=== PATIENT | female | born 1990 | race Caucasian/White ===

== ENCOUNTER 2019-07-28 14:57 | Outpatient (RCR) | payer OTHER, SELFPAY ==
--- NOTE | 2019-08-04 10:39 | PTOPEVAL ---
Thank you for referring this patient to [facility]. Please review, sign, date and return this plan of care WILLIE. I agree with and certify that the following plan of care is medically necessary. Referring Physician Date Admitting Provider: Attending Provider: Mukesh Magana, Referring Provider: *PT Outpatient Evaluation Start: 07/28/19 15:09 Freq: Status: Active Protocol: Document 07/28/19 15:15 JTF (Rec: 07/28/19 16:07 [email or web address] [id number]) Therapy Assessment Status Assessment Status Assessment Status Evaluation Outpatient Past Medical History Past Medical History Past Medical History Status Patient Denies Significant Past Medical History Evaluation Information Problem Diagnosis low back pain Onset 07/17/19 Additional Evaluation Detail oswestry = 40% Subjective Information patient reports she injured Query Text:As Reported By Patient/ her back at work about 2 weeks Family ago. 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 she reports she was having difficulty getting the wheelchair through the snow and slush that caused her to have back pain. she reports pain in the back since this incident. she reports sitting causes mid to low back pain, standing causes low back pain. Diagnostic Tests X-Rays For This Problem Yes: negative per patient report Prior Level of Function Comments Additional Prior Level of Function patient reports prior to 07/17, she was without pain or symptoms in the back. increased pain noted with sleeping on R side now. she reports she is on light duty at work currently. Pain Assessment Timing of Pain Assessment Timing of Pain Assessment Assessment Pain Scale Pain Scale Used Numeric (1 - 10) Self Report Pain Assessment Lower Back Reported Pain Level 4 Pain Description Aching,Burning,Soreness Radicular Pain Location burning in back only. no LE radicular symptoms. Other Pain Description sharp at times, wears a brace Current Pain Intensity 4 Lowest Pain Intensity 0 Greatest Pain Intensity 6
--- NOTE | 2019-08-24 14:24 | PCPTNOTE ---
patient called and cancelled appt due to weather. SANTIAGO
--- NOTE | 2019-09-12 11:44 | PCPTNOTE ---
09/12/19-PT CANCELLED APPOINTMENT ON 09/11/19-.
--- NOTE | 2019-09-22 10:11 | PCPTNOTE ---
09/22/19-pt did not show for appointment on 09/21/19-HM
--- NOTE | 2019-10-31 17:27 | PCPTNOTE ---
10/31/19- pt last seen on 09/19. pt did not show for apt on 09/21, and has not returned calls to return to therapy. pt will be discharged on this date per evaluating therapist.-MEHUL
== END 2019-09-19 23:59 | disposition home or self-care (01) ==
LOC: CHSPT 14:57
PROVIDERS: Visit Provider Internal Medicine
DX: M54.5 Low back pain (principal)
CPT/HCPCS: 97014; 97110; 97161; 97530; G0283

== ENCOUNTER 2020-05-15 13:04 | Emergency (ER) | payer OTHER, SELFPAY ==
[2020-05-15 13:08] VITALS: BP 136/96; PULSE 77; RESP 16; TEMP 36.3; O2SAT 100
[2020-05-15 13:23] LABS: Basophils Absolute Auto 0.1 K/mm3 (0.0-0.1); Basophils Percent Auto 0.7 % (0.2-1.2); Eosinophils Absolute Auto 0.1 K/mm3 (0-0.3); Hematocrit 44.1 % (37.0-47.0); Hemoglobin 14.2 g/dL (12.0-15.0); Immature Granulocyte Absolute 0.01 K/mm3 (0.00-0.031); Immature Granulocyte Percent A 0.1 % (0-0.5); Lymphocytes Absolute Auto 2.19 K/mm3 (0.9-3.2); Mean Corpuscular HGB Conc 32.2 g/dl (32-36); Mean Corpuscular Hemoglobin 25.9 pg (26-34); Mean Corpuscular Volume 80.5 fl (80-100); Mean Platelet Volume 9.2 fl (7.4-10.4); Monocytes Absolute Auto 0.6 K/mm3 (0.1-0.6); Monocytes Percent Auto 8.5 % (2.6-8.5); Neutrophils Percent Auto 57.7 % (45.5-73.1); Platelet Count Result 401 k/mm3 (150-375); Red Blood Count 5.48 M/mm3 (4.2-5.4); Red Cell Distribution Width 13.9 % (11.5-14.5); White Blood Count 6.9 K/mm3 (4.5-10.0)
[2020-05-15 13:34] LABS: Alanine Aminotransferase 17 U/L (4-35); Albumin Level 4.8 g/dL (3.5-5.1); Alkaline Phosphatase 70 U/L (38-126); Anion Gap 12 mmol/L (8-16); Aspartate Amino Transferase 23 U/L (14-36); Bilirubin,Total 0.3 mg/dL (0.2-1.3); Blood Urea Nitrogen 12 mg/dL (7-17); Calcium 9.1 mg/dL (8.4-10.2); Carbon Dioxide 27 mmol/L (22-30); Chloride 103 mmol/L (98-107); Estimated CRCL calculation 101 ml/min; Estimated Glomerular Filt Rate > 60; Glucose 98 mg/dL (65-105); Lipase 213 U/L (23-300); Potassium 3.7 mmol/L (3.4-5.0); Sodium 142 mmol/L (137-145)
--- NOTE | 2020-05-15 14:03 | ED.ABDPAIN ---
HPI - Abdominal Pain General Chief Complaint: Abdominal Pain Stated Complaint: LOWER ABD PAIN Time Seen by Provider: 05/15/20 13:57 History of Present Illness HPI narrative: Sent from urgent care for abdominal pain. She reports several days of urinary frequency and urgency. Mild lower abdominal tenderness. She tried cranberry pills without relief. Seen at urgent care this morning and sent over for further evaluation. Related Data Allergies Allergy/AdvReac Type Severity Reaction Status Date / Time morphine Allergy Mild ITCHING Verified 09/13/17 14:51 ibuprofen AdvReac Unknown Unknown Verified 09/13/17 14:51 Review of Systems Review of Systems: All systems reviewed & are unremarkable except as noted in HPI and below Constitutional: Constitutional: Denies fever(s) Cardiovascular: Cardiovascular: Denies chest pain Respiratory: Respiratory: Denies dyspnea Gastrointestinal: Gastrointestinal: Denies abdominal pain, Denies constipation, Denies diarrhea, Reports nausea and Denies vomiting Genitourinary: Genitourinary: Denies abnormal vaginal bleeding, Denies hematuria, Reports nocturia, Denies dysuria and Denies vaginal discharge Neurologic: Denies dizziness and Denies weakness [facility] Past Medical History Medical History Congenital absence of one kidney Family History Family History Mother No problems noted. Social History Social History Smoking status: Never smoker Alcohol intake: never Substance use: never Gender identity (if verbalized by the patient): Female Exam Const: General: healthy appearing, no acute distress and alert Nutritional Appearance: obese Orientation/consciousness: patient oriented x3 HENMT: Head: normal to inspection Resp: Effort & Inspection: normal respiratory effort Auscultation: clear to auscultation bilaterally, no rales, no rhonchi and no wheezes Cardio: Jugular venous distension: no JVD Rate: regular rate Rhythm: regular rhythm Heart sounds: no murmurs GI: Inspection: non-distended GI Palp: Yes Soft to palpation and Yes Tenderness to palpation present (GI) (suprapubic) Skin: General skin exam: normal color Neuro: General: patient oriented x3 and moves all extremities Speech: normal speech Extrem: General: no edema Psych: Appearance: well kempt Affect: normal affect Course Vital Signs Vital signs: Vital Signs Temperature 36.3 C L 05/15/20 13:08 Pulse Rate 77 05/15/20 13:08 Respiratory Rate 16 05/15/20 13:08 Blood Pressure 136/96 H 05/15/20 13:08 Pulse Oximetry 100 05/15/20 13:08 Temperature 36.3 C L 05/15/20 13:08 Pulse Rate 77 05/15/20 13:08 Respiratory Rate 16 05/15/20 13:08 Blood Pressure 136/96 H 05/15/20 13:08 Pulse Oximetry 100 05/15/20 13:08 MDM - Abdominal Pain MDM Narrative Medical decision making narrative: UA borderline. She has symptoms consistent with UTi, so I will initiate treatment. Medical Records Attestation: I reviewed the patient's medical records. Lab Data Attestation: I reviewed the patient's lab results. Result diagrams: 05/15/20 13:16 05/15/20 13:16 Labs: Lab Results 05/15/20 05/15/20 05/15/20 Range/Units 13:16 13:16 13:58 WBC 6.9 (4.5-10.0) K/mm3 RBC 5.48 H (4.2-5.4) M/mm3 Hgb 14.2 (12.0-15.0) g/dL Hct 44.1 (37.0-47.0) % MCV 80.5 (80-100) fl MCH 25.9 L (26-34) pg MCHC 32.2 (32-36) g/dl RDW 13.9 (11.5-14.5) % Plt Count 401 H (150-375) k/mm3 MPV 9.2 (7.4-10.4) fl Immature Gran % (Auto) 0.1 (0-0.5) % Neut % (Auto) 57.7 (45.5-73.1) % Lymph % (Auto) 32.0 (18.3-44.2) % [place] % (Auto) 8.5 (2.6-8.5) % Eos % (Auto) 1.0 (0-4.4) % Baso % (Auto) 0.7 (0.2-1.2) % Lymph # (Auto) 2.19 (0.9-3.2) K/mm3 [place] # (Aut
[2020-05-15 14:13] LABS: Add Urine Microscopic? YES; Appearance Urine Cloudy (Clear); Bacteria Urine Trace /hpf; Bilirubin Urine Negative (Negative); Blood Urine 3+ (Negative); Color Urine Yellow (Yellow); Glucose Urine UA Negative (Negative); Ketones Urine Negative (Negative); Leukocyte Esterase Ur Negative LEU/UL (Negative); Mucus Urine Heavy /lpf; Nitrate Urine Negative (Negative); Protein Urine 1+ mg/dL (Negative); Squamous Epithelial Cell Urine Many /hpf (Few); Urobilinogen Urine Negative mg/dL (<2.0)
[2020-05-15] MEDS: PHENAZOPYRIDINE HCL 100 MG TABLET 200 MG PO (14:47)
[2020-05-15] MEDS: NITROFURANTOIN MONOHYD MACROCR 100 MG CAP PO (14:47)
== END 2020-05-15 15:20 | disposition home or self-care (01) ==
PROVIDERS: Emergency Provider Emergency Medicine; PCP Physician Assistant
DX: N30.01 Acute cystitis with hematuria (principal); Q60.0 Renal agenesis, unilateral
CPT/HCPCS: 36415; 80053; 81001; 81025; 83690; 85025; 99283; A9270

== ENCOUNTER 2021-07-31 01:15 | Emergency (ER) | payer OTHER, SELFPAY ==
--- NOTE | 2021-07-31 01:38 | ED.GENADULT ---
HPI - General Adult General Chief complaint: Unspecified Stated complaint: COVID SYMPTOMS Source: patient, family and RN notes reviewed Mode of arrival: ambulatory Limitations: no limitations History of Present Illness HPI narrative: patient states she is diagnosed with COVID yesterday. Add a local urgent care. She now is experiencing some chest soreness. She has a O2 sat monitor and noted that her heart rate was in the 130s at 1 point yesterday and then today has been 60 80 which is lower than her usual. She denies any nausea vomiting, shortness of breath, diaphoresis, radiation of pain, pain goes completely across her chest. Has mild worse when she moves MD complaint: Chest soreness Location: chest Radiation: non-radiation Severity: mild Quality: aching Pain Consistency: intermittent Associated symptoms: denies other symptoms Treatments prior to arrival: none Related Data Allergies Allergy/AdvReac Type Severity Reaction Status Date / Time morphine Allergy Mild ITCHING Verified 09/13/17 14:51 ibuprofen AdvReac Unknown Unknown Verified 09/13/17 14:51 Review of Systems Review of Systems: All systems reviewed & are unremarkable except as noted in HPI and below Constitutional: Constitutional: Denies chills and Denies fever(s) Cardiovascular: Cardiovascular: Denies diaphoresis, Reports rapid heart rate, Denies claudication, Denies leg edema and Denies lightheadedness Respiratory: Respiratory: Denies dyspnea Gastrointestinal: Gastrointestinal: Denies nausea and Denies vomiting Musculoskeletal: Musculoskeletal: Denies muscle cramps PMFSH Past Medical History Medical History (Updated 07/31/21 @ 03:25 by Addi Reddy MD) Congenital absence of one kidney Surgical History Surgical History (Updated 07/31/21 @ 01:48 by Addi Reddy MD) Delivery by section Family History Family History Mother No problems noted. Social History Social History Smoking status: Never smoker Alcohol intake: never Substance use: never Gender identity (if verbalized by the patient): Female Exam Const: General: healthy appearing and no acute distress Nutritional Appearance: obese morbidly obese Orientation/consciousness: patient oriented x3 HENMT: Head: normal to inspection Ears: external ears normal Eyes: Conjunctivae: conjunctivae normal Pupils: Equal, round and reactive pupils present EOM: EOMs intact bilaterally Neck: Neck: normal visual inspection Chest: Chest palpation & inspection: tenderness pectoral muscle bilaterally diffusely ( reproduces her pain) Resp: Effort & Inspection: normal respiratory effort Auscultation: clear to auscultation bilaterally Cardio: Rate: regular rate Rhythm: regular rhythm GI: GI Palp: Yes Soft to palpation and No Tenderness to palpation present (GI) Auscultation: normal bowel sounds Back/Spine/Pelvis: Cervical Spine: cervical ROM normal Thoracic/Lumbar Spine: thoraco-lumbar ROM normal Skin: General skin exam: normal color Rashes: no rashes Neuro: General: patient oriented x3, moves all extremities, no meningeal signs and no focal motor deficits Speech: normal speech Gait exam (Neuro): Normal gait present Extrem: General: normal to inspection, no clubbing, cyanosis or edema and no calf tenderness Psych: Appearance: grossly normal and well kempt Mental Status: mental status grossly normal Affect: normal affect Attitude: cooperative Thought content: Yes Normal thought content present Medical Decision Making MDM Narrative Medical decision making narrative: 4PEPS role for acute PE scored a -2 extremely low probability of PE. Lab Data Lab results reviewed: Yes I reviewed the patient's lab results. ECG Data EKG #1: Attestation: I personally reviewed and interpreted this ECG as follows: ECG completion date: 07/31/21 ECG completi
--- NOTE | 2021-07-31 01:49 | ECG_ITS ---
Measurements Intervals [place] Rate: 80 P: 13 AR: 163 QRS: -15 QRSD: 101 T: -9 QT: 375 QTc: 433 Interpretive Statements SINUS RHYTHM BORDERLINE R WAVE PROGRESSION, ANTERIOR LEADS BORDERLINE T WAVE ABNORMALITY- ANT/INF LEADS BORDERLINE ECG Electronically Signed On 07-31-2021 7:18:21 RN CAMP by Burke Montes D.O.
[2021-07-31 01:51] VITALS: PULSE 92; RESP 20; TEMP 37; O2SAT 95
[2021-07-31 02:04] LABS: Hematocrit 39.1 % (35.0-49.0); Hemoglobin 12.1 g/dL (12.0-15.0); Mean Corpuscular HGB Conc 30.9 g/dL (32.0-36.0); Mean Corpuscular Hemoglobin 24.5 pg (27.0-31.0); Mean Corpuscular Volume 79.3 fL (78.0-102.0); Mean Platelet Volume 8.8 fl (9.2-11.8); Platelet Count Result 299 K/mm3 (150-420); Red Blood Count 4.93 M/mm3 (4.20-5.40); Red Cell Distribution Width 13.5 % (11.6-14.4); White Blood Count 2.8 K/mm3 (4.8-10.8)
[2021-07-31 02:24] LABS: Band Neutrophils Percent 0 % (0-6); Basophils Absolute Manual 0.08 K/mm3 (0-0.1); Basophils Percent Manual 3 % (0-1); Eosinophils Absolute Manual 0.05 K/mm3 (0.02-0.5); Eosinophils Percent Manual 2 % (1-6); Lymphocytes Absolute Manual 1.56 K/mm3 (1.1-4.5); Lymphocytes Percent Manual 56 % (18-44); Monocytes Absolute Manual 0.39 K/mm3 (0.1-0.90); Monocytes Percent Manual 14 % (3-9); Neutrophils Percent Manual 25 % (46-73); Platelet Estimate Adequate (Adequate)
[2021-07-31 02:25] LABS: Alanine Aminotransferase 24 U/L (14-59); Albumin Level 3.4 g/dL (3.4-5.0); Alkaline Phosphatase 63 U/L (46-116); Anion Gap 11 mmol/L (8-16); Aspartate Amino Transferase 21 U/L (15-37); Bilirubin,Total 0.2 mg/dL (0.00-1.00); Blood Urea Nitrogen 10 mg/dL (7-18); Calcium 8.1 mg/dL (8.5-10.1); Carbon Dioxide 26 mmol/L (21-32); Chloride 103 mmol/L (98-108); Estimated CRCL calculation 97 ml/min; Estimated Glomerular Filt Rate > 60; Glucose 103 mg/dL (70-99); Osmolality Calculated 289 mOsm/kg (285-295); Potassium 3.5 mmol/L (3.5-5.1); Sodium 140 mmol/L (136-145); Total Protein 7.2 g/dL (6.4-8.2); Troponin I 4.3 ng/L (0.00-60.4)
[2021-07-31 02:26] LABS: D Dimer 1.34 mg/L (0.19-0.50)
--- NOTE | 2021-07-31 03:23 | PC.NURSE ---
All Pt labs returned. No change in Pt condition. Up once to use the bathroom. Lab called over elevated D-Dimer 1.34. Dr Reddy advised. NNO.
[2021-07-31 03:36] VITALS: BP 111/83; PULSE 81; RESP 20; TEMP 36.2; O2SAT 97
== END 2021-07-31 03:38 | disposition home or self-care (01) ==
PROVIDERS: Emergency Provider Emergency Medicine
DX: R07.89 Other chest pain (principal); U07.1 COVID-19
CPT/HCPCS: 36415; 80053; 83735; 84484; 85025; 85380; 93005; 99282; 99283

== ENCOUNTER 2022-02-09 16:45 | Emergency (ER) | payer OTHER, SELFPAY ==
[2022-02-09] VITALS (13 sets, daily range): BP systolic 117–151; BP diastolic 77–98; PULSE 79–100; RESP 16–24; TEMP 36.4; O2SAT 95–100
--- NOTE | ~2022-02-09 | CT_ITS ---
EXAMINATION: CTA chest PE protocol DATE: 02/09/2022 19:54 CDT INDICATION: Chest pain, dizziness and shortness of breath TECHNIQUE: Computed tomographic angiography (CTA) of the chest was performed with 100 mL Omnipaque-35 0 intravenous contrast. The dose-length product was 897.57 mGy-cm. Maximum intensity projection 3D-re constructions of the aorta and other arteries were constructed by the technologist on a separate work station. COMPARISON: CT dated 05/10/2017. FINDINGS: Study is technically adequate without evidence for pulmonary embolism. Heart size normal. S mall hiatal hernia. No significant pleural or pericardial effusion. The upper abdomen is unremarkable . No pneumothorax. No endobronchial lesions. No focal airspace consolidation. There is atelectasis in the right lower lobe. No pulmonary nodules or masses. No acute osseous abnormality. No thoracic lymp hadenopathy. IMPRESSION: 1. No acute cardiopulmonary disease. No evidence for pulmonary embolism. Reviewed, dictated and finalized at location A.
--- NOTE | ~2022-02-09 | CT_ITS ---
EXAMINATION: CT BRAIN W/O DATE: 02/09/2022 19:44 INDICATION: Dizziness TECHNIQUE: Computed tomography (CT) of the head was performed without intravenous contrast. The dose- length product was 605.33 mGy-cm. Automated exposure control and iterative reconstruction technique w ere employed. COMPARISON: No prior studies for comparison. FINDINGS: Normal brain parenchymal volume for age. Normal flor-white differentiation. No acute intrac ranial hemorrhage, infarction, mass or mass effect. No ventriculomegaly or midline shift. Midline sagittal images demonstrate a normal corpus callosum, c raniovertebral junction and sella turcica. Basilar cisterns are patent. Paranasal sinuses and mastoids are pneumatized. No depressed skull fractures. IMPRESSION: 1. No acute intracranial abnormality. Reviewed, dictated and finalized at location A.
--- NOTE | ~2022-02-09 | XR_ITS ---
EXAMINATION: XR chest 1V portable 02/09/2022 17:34 INDICATION: Chest heaviness and shortness of breath. Covid positive. PROCEDURE: AP portable chest COMPARISON: 08/29/2018 FINDINGS: The lungs are clear. The cardiomediastinal silhouette is within normal limits. There are no pleural effusions. There is no pneumothorax suspected. IMPRESSION: 1: NO ACUTE CARDIOPULMONARY DISEASE. Reviewed, dictated and finalized at location A.
--- NOTE | 2022-02-09 16:48 | ECG_ITS ---
Measurements Intervals [place] Rate: 74 P: 43 KS: 156 QRS: 75 QRSD: 109 T: 61 QT: 368 QTc: 409 Interpretive Statements SINUS RHYTHM DELAYED PRECORDIAL R/S TRANSITION BORDERLINE ECG Electronically Signed On 02-09-2022 21:21:25 CDT by Burke Montes D.O.
[2022-02-09 17:47] LABS: Basophils Absolute Auto 0.1 K/mm3 (0.0-0.1); Basophils Percent Auto 0.8 % (0.2-1.2); Eosinophils Absolute Auto 0.1 K/mm3 (0-0.3); Eosinophils Percent Auto 1.3 % (0-4.4); Hematocrit 38.9 % (37.0-47.0); Immature Granulocyte Absolute 0.01 K/mm3 (0.00-0.031); Immature Granulocyte Percent A 0.2 % (0-0.5); Lymphocytes Absolute Auto 2.75 K/mm3 (0.9-3.2); Lymphocytes Percent Auto 45.5 % (18.3-44.2); Mean Corpuscular HGB Conc 30.8 g/dl (32-36); Mean Corpuscular Hemoglobin 24.1 pg (26-34); Mean Corpuscular Volume 78.3 fl (80-100); Mean Platelet Volume 9.3 fl (7.4-10.4); Monocytes Absolute Auto 0.5 K/mm3 (0.1-0.6); Monocytes Percent Auto 7.8 % (2.6-8.5); Neutrophils Absolute Auto 2.7 K/mm3 (1.3-6.7); Neutrophils Percent Auto 44.4 % (45.5-73.1); Platelet Count Result 420 k/mm3 (150-375); Red Blood Count 4.97 M/mm3 (4.2-5.4); Red Cell Distribution Width 14.6 % (11.5-14.5); White Blood Count 6.1 K/mm3 (4.5-10.0)
[2022-02-09] MEDS: MECLIZINE HCL 25 MG TABLET PO (18:13)
[2022-02-09] MEDS: SODIUM CHLORIDE 0.9% IV 1,000 ML 999 ML IV CONT (18:14)
--- NOTE | 2022-02-09 19:12 | PC.NURSE ---
Report received from RAYMOND Diaz
[2022-02-09 19:23] LABS: INR 1.1; Partial Thromboplastin Time 27.8 SECONDS (22.3-36.8); Prothrombin Time 13.4 Seconds (11.1-14.7)
[2022-02-09 19:24] LABS: Alanine Aminotransferase 14 U/L (6-35); Albumin Level 4.1 g/dL (3.5-5.1); Alkaline Phosphatase 66 U/L (38-126); Anion Gap 7 mmol/L (8-16); Aspartate Amino Transferase 21 U/L (14-36); Bilirubin,Total 0.3 mg/dL (0.2-1.3); Blood Urea Nitrogen 14 mg/dL (7-17); Calcium 8.6 mg/dL (8.4-10.2); Carbon Dioxide 25 mmol/L (22-30); Chloride 105 mmol/L (98-107); Estimated CRCL calculation 125 ml/min; Estimated Glomerular Filt Rate > 60; Glucose 90 mg/dL (65-110); Lipase 163 U/L (23-300); Potassium 3.9 mmol/L (3.4-5.0); Sodium 137 mmol/L (137-145)
[2022-02-09 19:35] LABS: Troponin I < 0.012 ng/mL (0.000-0.034)
[2022-02-09 19:45] LABS: D Dimer 0.56 ug/mL (<0.48)
--- NOTE | 2022-02-09 20:43 | ED.CHESTPAIN ---
HPI - Chest Pain General Chief Complaint: Chest Pain Stated Complaint: CP, dizziness, covid-19+ 02/02/22 Time Seen by Provider: 02/09/22 17:04 Source: RN notes reviewed History of Present Illness HPI narrative: Patient presents emergency department from home for dizziness. The patient states that she was diagnosed with COVID-19 on February 02. She states that today was her first day back at work and she was at work when she began to feel dizzy with a feeling of the room spinning it was associated with a feeling of chest heaviness and shortness of breath. States that symptoms seem to be worse when she is moving and better at rest states that symptoms are improved but still present at this time. She denies any fevers or chills abdominal pain nausea vomiting or any other symptoms Related Data Allergies Allergy/AdvReac Type Severity Reaction Status Date / Time morphine Allergy Mild ITCHING Verified 09/13/17 14:51 ibuprofen AdvReac Unknown Unknown Verified 09/13/17 14:51 Review of Systems Review of Systems: Gen.: Denies fevers or chills Eyes: Denies eye pain or visual change ENT: Denies congestion Respiratory: Ports shortness of breath and cough CV: Reports chest pain GI: Denies abdominal pain nausea, emesis or diarrhea denies burning, urgency, frequency or hematuria Musculoskeletal: Denies back pain or muscle pain Neuro: Reports dizziness Skin: Denies rash Except as documented, all other systems reviewed and negative [facility] Past Medical History Medical History Congenital absence of one kidney Surgical History Surgical History (Updated 07/31/21 @ 01:48 by Addi Reddy MD) Delivery by section Family History Family History Mother No problems noted. Social History Social History Smoking status: Never smoker Alcohol intake: never Substance use: never Gender identity (if verbalized by the patient): Female Exam Narrative: APPEARANCE: No acute distress, nontoxic, resting in bed EYES: EOMI HEENT: Normocephalic, atraumatic, OMM RESPIRATORY: No respiratory distress Clear to auscultation bilaterally with no rhonchi wheezing or rales. CARDIOVASCULAR: Regular rate and rhythm without murmurs rubs or gallops. Chest: Tender palpation of bilateral anterior chest just to the left right of the sternum and region of ribs 4 through 7 pain increased with light motion of the chest ABDOMINAL: Soft, nontender, nondistended, no rebound or guarding MUSCULOSKELETAl: Moves all extremities. No clubbing, cyanosis or edema. NEURO: Awake and alert x 4. Following commands, speech normal, no focal deficits, muscle strength 5 out of 5 bilateral upper and lower extremities SKIN:: Warm, dry. No rashes lesions or abrasions PSYCHIATRIC: Normal affect/mood, Course Course Emergency Course: Patient states she is feeling better at this time ready for discharge Discussed with patient results of workup and diagnosis. Discussed need for follow-up with primary care, proper use of medication, and reasons to return to the emergency department. Patient understands and agrees to current treatment plan Vital Signs Vital signs: Vital Signs Temperature 97.5 F L 02/09/22 16:49 Pulse Rate 100 02/09/22 16:49 Respiratory Rate 18 02/09/22 16:49 Blood Pressure 148/94 H 02/09/22 16:49 Pulse Oximetry 100 02/09/22 16:49 Oxygen Delivery Room Air 02/09/22 16:49 Temperature 97.5 F L 02/09/22 16:49 Pulse Rate 89 02/09/22 21:29 Respiratory Rate 20 02/09/22 17:45 Blood Pressure 125/87 02/09/22 21:29 Pulse Oximetry 98 02/09/22 17:45 Oxygen Delivery Room Air 02/09/22 17:10 MDM - Chest Pain MDM Narrative Medical decision making narrative: Patient's EKGs and labs are without significant high risk changes. Cardiac risk factors reviewed. Patient is f
[2022-02-09 21:07] LABS: Troponin I < 0.012 ng/mL (0.000-0.034)
== END 2022-02-09 22:01 | disposition home or self-care (01) ==
PROVIDERS: Emergency Provider Emergency Medicine; PCP Physician Assistant
DX: U07.1 COVID-19 (principal); R07.89 Other chest pain; Q60.0 Renal agenesis, unilateral; R94.31 Abnormal electrocardiogram [ECG] [EKG]
CPT/HCPCS: 36415; 70450; 71045; 71275; 80053; 83690; 84484; 85025; 85380; 85610; 85730; 93005; 96360; 99284; A9270; J7030; Q9967

== ENCOUNTER 2022-05-04 14:11 | Emergency (ER) | payer OTHER, SELFPAY ==
[2022-05-04 14:16] VITALS: BP 142/91; PULSE 92; RESP 17; TEMP 36.7; O2SAT 99
--- NOTE | 2022-05-04 14:51 | ED.GENADULT ---
HPI - General Adult General Chief complaint: Headache Stated complaint: left ear pain and headache Time Seen by Provider: 05/04/22 14:46 History of Present Illness HPI narrative: 31-year-old female presents the emergency room for evaluation of left ear pain that is radiating into left temporal and left maxillary areas. Patient states she was seen at urgent care on Wednesday diagnosed with an ear infection. Patient was placed on Augmentin and a 7-day course of low-dose steroids. Patient states that she was having a headache on the left side that would not resolve after taking Tylenol multiple occasions. Patient also endorses sinus congestion, postnasal drip for several days prior to developing the ear ache. Patient endorses a popping sensation and occasional tinnitus in the left ear. Denies fevers. Related Data Allergies Allergy/AdvReac Type Severity Reaction Status Date / Time morphine Allergy Mild ITCHING Verified 09/13/17 14:51 ibuprofen AdvReac Unknown Unknown Verified 09/13/17 14:51 Review of Systems Review of Systems: CONSTITUTIONAL: Denies fever, chills, or sweats. EYES: Denies visual changes, redness, or discharge. ENT: Reports congestion, left otalgia CARDIOVASCULAR: Denies chest pain, palpitations, or edema. RESPIRATORY: Denies cough or dyspnea. GASTROINTESTINAL: Denies abdominal pain, nausea, vomiting, or diarrhea. GENITOURINARY: Denies dysuria or hematuria. SKIN: Denies rash or itching. MUSCULOSKELETAL: Denies back pain, joint pain, or myalgia. NEUROLOGIC: Denies headache, numbness, dizziness, or weakness. PSYCHIATRIC: Denies anxiety or depression. PMFSH Past Medical History Medical History Congenital absence of one kidney Surgical History Surgical History Delivery by section Family History Family History Mother No problems noted. Social History Social History Smoking status: Never smoker Alcohol intake: never Substance use: never Gender identity (if verbalized by the patient): Female Exam Narrative: GENERAL: Well-appearing, well-nourished, no physical limitations, and in no acute distress. HEAD: Normocephalic, atraumatic. Tenderness over the left temporal and maxillary areas EYES: Conjunctivae normal, PERRLA and EOMI. ENT: External nose normal, Nares clear, no rhinorrhea or epistaxis. Mucous membranes moist. Oropharynx without tonsillar hypertrophy exudate or other lesions. Clear effusion bilaterally. NECK: Supple. No meningeal signs. No adenopathy or masses. No carotid bruits or JVD CHEST: Clear to auscultation. No respiratory distress. No wheezes rales or rhonchi. HEART: Regular rate and rhythm. No murmur heard. Normal peripheral pulses. EXTREMITIES: Normal range of motion. No edema. No clubbing or cyanosis SKIN: Warm, dry, no rash. No noted wounds NEURO: No focal deficits. Alert and oriented x3. MAEW. CN's II-XI intact bilaterally, normal gait PSYCH: Cooperative. Normal mood and affect. Course Vital Signs Vital signs: Vital Signs Temperature 36.7 C 05/04/22 14:16 Pulse Rate 92 05/04/22 14:16 Respiratory Rate 17 05/04/22 14:16 Blood Pressure 142/91 H 05/04/22 14:16 Pulse Oximetry 99 05/04/22 14:16 Oxygen Delivery Room Air 05/04/22 14:16 Temperature 36.7 C 05/04/22 14:16 Pulse Rate 92 05/04/22 14:16 Respiratory Rate 17 05/04/22 14:16 Blood Pressure 142/91 H 05/04/22 14:16 Pulse Oximetry 99 05/04/22 14:16 Oxygen Delivery Room Air 05/04/22 14:16 Medical Decision Making Vital Signs Vital Signs: Vital Signs Temperature 36.7 C 05/04/22 14:16 Pulse Rate 92 05/04/22 14:16 Respiratory Rate 17 05/04/22 14:16 Blood Pressure 142/91 H 05/04/22 14:16 Pulse Oximetry 99 05/04/22 14:16 Oxygen Deli
[2022-05-04 15:12] VITALS: BP 118/78; PULSE 76; RESP 18; O2SAT 100
== END 2022-05-04 15:13 | disposition home or self-care (01) ==
PROVIDERS: Emergency Provider Nurse Practitioner Family; PCP Physician Assistant
DX: H92.02 Otalgia, left ear (principal); H66.92 Otitis media, unspecified, left ear; Q60.0 Renal agenesis, unilateral
CPT/HCPCS: 96372; 99283; J1100